=== PATIENT | male | born 1965 | race Caucasian/White ===

== ENCOUNTER 2019-09-08 14:18 | Outpatient (CLI) | payer OTHER ==
--- NOTE | 2019-09-08 15:23 | RAD ---
TWO VIEW CHEST: HISTORY: Cough. COMPARISON: 09/28/2013. FINDINGS: No evidence of infiltrate or effusion. Interstitial markings are mildly prominent. Vasculature is w ithin normal range. Heart size normal. IMPRESSION: Mild prominence of interstitium could represent viral process. No confluent infiltrate. POS: C
== END 2019-09-08 14:19 | disposition home or self-care (01) ==
LOC: RAD-FRANK 14:18
PROVIDERS: ATTEND Nurse Practitioner Family
DX: R05 Cough (principal)
CPT/HCPCS: 71046